=== PATIENT | female | born 1975 | race Caucasian/White ===

== ENCOUNTER 2016-11-15 16:56 | Emergency (ER) | payer OTHER ==
[~2016-11-15] VITALS: Ht 162.6 cm; Wt 80.8 kg
[2016-11-15 16:58] VITALS: TEMP 37; Ht 162.6 cm; Wt 80.8 kg
[2016-11-15] MEDS ORDERED: ONDANSETRON INJ 2 MG/ML 2 ML VIAL IV STA (18:20)
[2016-11-15] MEDS ORDERED: MoRPHine SULFATE 10 MG/ML CARP/VIAL IV STA (18:20)
[2016-11-15] MEDS ORDERED: SODIUM CHLORIDE 0.9% 1000ML 1,000 ML IV ONE (18:30)
[2016-11-15] MEDS ORDERED: OPTIRAY 320 IV PRN (18:30)
[2016-11-15 18:37] LABS: URINE APPEARANCE CLEAR (CLEAR); URINE BILIRUBIN NEG (NEG); URINE COLOR YELLOW; URINE NITRITE NEG (NEG); URINE SPECIFIC GRAVITY 1.005 (1.000-1.030); UROBILINOGEN NEG (NEG); ZZUR CULT IF INDIC CLEAN CATCH NO
[2016-11-15 18:39] LABS: BASO % 0.3 %; BASO ABS # 0.02 K/uL (0-0.2); COMPLETE YES; EOS % 2.1 %; IG% 0.1 %; LYMPH % 35.3 %; LYMPH ABS # 2.49 K/uL (1.2-3.4); MEAN CELL VOLUME 82.6 fL (80-100); MEAN CORPUSCULAR HEMOGLOBIN 27.2 pg (25-34); MEAN CORPUSCULAR HGB CONC 32.9 g/dl (32-36); MEAN PLATELET VOLUME 9.6 fL (7.4-10.4); MONO % 6.4 %; NEUT % 55.8 %; PLATELET COUNT 238 K/uL (130-400); WHITE BLOOD COUNT 7.05 K/uL (4.8-10.8)
[2016-11-15 18:42] LABS: MANUAL MICROSCOPIC REQUIRED? NO; REVIEW REQ? NO
[2016-11-15] MEDS ORDERED: GABA-113 PO (18:42)
[2016-11-15] MEDS ORDERED: BUPRTAB51 PO (18:42)
[2016-11-15] MEDS ORDERED: LINA1CAP PO (18:42)
[2016-11-15] MEDS ORDERED: SYN112 PO (18:42)
[2016-11-15] MEDS ORDERED: ATV/1 PO (18:42)
[2016-11-15] MEDS ORDERED: ESTR1TAB2 PO (18:42)
[2016-11-15 18:56] LABS: BUN/CREATININE RATIO 8.3 (10-20); CREATININE 1.1 mg/dl (0.60-1.20); POTASSIUM 3.6 mmol/L (3.5-5.1)
[2016-11-15 18:59] LABS: ALB/GLOB RATIO 1.1 (0.9-2)
--- NOTE | 2016-11-15 20:21 | DIAGNOSTIC IMAGING REPORT ---
BILIARY ULTRASOUND CLINICAL HISTORY: RUQ abd pain COMPARISON STUDY: No previous studies for comparison. FINDINGS: The pancreas was not visualized. No focal hepatic masses are visualized. There is no ductal dilatation. The common bile duct measures 3 mm. No gallstones are visualized. There is no gallbladder wall thickening. There is no pericholecystic fluid. Equivocal gallbladder sludge is likely artifactual. There is no right-sided hydronephrosis. IMPRESSION: Nondiagnostic evaluation of the pancreas. Otherwise normal biliary ultrasound. Electronically signed by: Kenneth Briceño M.D. 11/15/2016 8:19 PM Dictated Date/Time: 11/15/2016 8:18 PM
--- NOTE | 2016-11-15 21:10 | DIAGNOSTIC IMAGING REPORT ---
CT ABD/PELVIS IV AND ORAL CONT CLINICAL HISTORY: Right side Upper and Lower abd pain COMPARISON STUDY: None. TECHNIQUE: Following the IV administration of 119 mL of Optiray-320, CT scan of the abdomen and pelvis was performed from the lung bases to the proximal femurs. Images are reviewed in the axial, sagittal, and coronal planes. IV contrast was administered without complication. CT DOSE: 595.63 mGy.cm FINDINGS: Lower chest: There are minor basilar atelectatic changes. Liver: The contrast-enhanced liver is normal in size, contour, and attenuation. There is no intrahepatic biliary ductal dilatation. The hepatic veins and portal veins are patent. Gallbladder: Unremarkable. Spleen: Normal in size and attenuation. Pancreas: Unremarkable. Adrenal glands: Unremarkable. Kidneys: There is symmetric renal cortical enhancement. The kidneys are normal in size without hydronephrosis. Bowel: There are no transition zones indicate bowel obstruction. The appendix appears normal. There is no acute diverticulitis. Peritoneum: There is no intraperitoneal free air or abdominal ascites. Vasculature: The abdominal aorta is normal in course and caliber. Adenopathy: None. Pelvic viscera: The bladder, and pelvic viscera are unremarkable. Skeletal structures: No destructive osseous lesions are seen. There is a generator pack within the subcutaneous tissues the right lateral abdominal wall. The electrode extends cephalad. IMPRESSION: No acute intra-abdominal or pelvic findings. No evidence of bowel obstruction. No evidence of free air. Normal appendix. No acute inflammatory changes Electronically signed by: Kenneth Briceño M.D. 11/15/2016 9:08 PM Dictated Date/Time: 11/15/2016 9:04 PM
[2016-11-15] MEDS ORDERED: ONDANSETRON HOME PACK 4MG OD TAB PO ONE (21:30)
[2016-11-15 21:46] VITALS: BP 120/88; PULSE 70; O2SAT 97
--- NOTE | 2016-11-15 21:54 | EMERGENCY ROOM VISIT NOTE ---
ED Visit Note First contact with patient: 18:05 I have personally seen and evaluated the patient with the PA. I agree with the diagnosis and management decisions and have been personally involved in the case. Please see Will Moreira PA-C's notes for further details of the history, physical and visit.
--- NOTE | 2016-11-16 18:20 | EMERGENCY ROOM VISIT NOTE ---
History First contact with patient: 18:05 Chief Complaint: ABDOMINAL PAIN Stated Complaint: RT ABDOMINAL PAIN Nursing Triage Summary: Pt c/o abd RLQ pain since yesterday morning Went to local ED yesterday and "I have a contracted gal bladder but it's not getting any better" History of Present Illness The patient is a 41 year old female who presents to the Emergency Room with complaints of right-sided abdominal pain for the past 24 hours. The patient states that she went to [place] emergency department yesterday where she had blood work and CT scan that showed a contracted gallbladder. The patient was discharged home and followed up with her primary care physician this morning. The patient has persistent pain, contacted her PCP, who referred her back to the ER. The patient has not had fever or chills. No nausea or vomiting. She has not had relief with [id number] pain medication. She rates her discomfort a 10/10, and has not had similar symptoms in the past. She does have a previous history of total hysterectomy and oophorectomy. Review of Systems More than 10 systems were reviewed and otherwise negative with the exception of history of present illness. Past Medical/Surgical History History of anxiety and hypothyroid Family History No pertinent family history Social History Smoking Status: Never Smoker Housing Status: lives with family Current/Historical Medications Scheduled Bupropion (Wellbutrin-Xl), 300 MG PO DAILY Estradiol (Estrace), 1 MG PO QAM Gabapentin (Neurontin), 300 MG PO QID Levothyroxine Sodium (Synthroid), 112 MCG PO QAM Linaclotide (Linzess), 145 MCG PO QAM Lorazepam (Ativan), 1 MG PO BID Allergies Coded Allergies: Sertraline (Verified Allergy, Unknown, rash, 11/15/16) Physical Exam Vital Signs Date Time Temp Pulse Resp B/P Pulse Ox O2 Delivery O2 Flow Rate FiO2 11/15/16 21:46 70 20 120/88 97 11/15/16 21:08 74 20 125/83 99 Room Air 11/15/16 19:20 79 20 128/70 100 Room Air 11/15/16 16:58 37.0 79 18 163/94 98 Room Air Pain Rating (0-10): 2.0 Physical Exam VITALS: Vitals are noted on the nurse's note and reviewed by myself. Vital signs stable. GENERAL: Well-developed, well-nourished, white female who looks quite uncomfortable on presentation. She is holding the right side of her abdomen with both of her hands. HEAD: Normocephalic atraumatic. HEART: Regular rate and rhythm without murmurs gallops or rubs. LUNGS: Clear to auscultation bilaterally without wheezes, rales or rhonchi. No retractions or accessory muscle use. ABDOMEN: Positive normal bowel sounds x 4. Soft with positive right upper and right lower quadrant tenderness on palpation. No rebound tenderness. The patient does guard in the right side of her abdomen. No CVA tenderness. Negative obturator and psoas. MUSCULOSKELETAL: No muscle atrophy, erythema, or edema noted. Full range of motion without joint tenderness in all extremities. Medical Decision & Procedures ER Provider Diagnostic Interpretation: BILIARY ULTRASOUND CLINICAL HISTORY: RUQ abd pain COMPARISON STUDY: No previous studies for comparison. FINDINGS: The pancreas was not visualized. No focal hepatic masses are visualized. There is no ductal dilatation. The common bile duct measures 3 mm. No gallstones are visualized. There is no gallbladder wall thickening. There is no pericholecystic fluid. Equivocal gallbladder sludge is likely artifactual. There is no right-sided hydronephrosis. IMPRESSION: Nondiagnostic evaluation of the pancreas. Otherwise normal biliary ultrasound CT ABD/PELVIS IV AND ORAL CONT CLINICAL HISTORY: Right side Upper and Lower abd pain COMPARISON STUDY: None. TECHNIQUE: Following the IV administration of 119 mL of Optiray-320, CT scan of the abdomen and pelvis was performed from the lung bases to the proximal femurs. Images are reviewed in the axial, sagittal, and coronal planes. IV contrast was administered without complication. CT DOSE: 595.63 mGy.cm FINDINGS: Lower chest: There are minor basilar atelectatic changes. Liver: The contrast-enhanced liver is normal in size, contour, and attenuation. There is no intrahepatic biliary ductal dilatation. The hepatic veins and portal veins are patent. Gallbladder: Unremarkable. Spleen: Normal in size and attenuation. Pancreas: Unremarkable. Adrenal glands: Unremarkable. Kidneys: There is symmetric renal cortical enhancement. The kidneys are normal in size without hydronephrosis. Bowel: There are no transition zones indicate bowel obstruction. The appendix appears normal. There is no acute diverticulitis. Peritoneum: There is no intraperitoneal free air or abdominal ascites. Vasculature: The abdominal aorta is normal in course and caliber. Adenopathy: None. Pelvic viscera: The bladder, and pelvic viscera are unremarkable. Skeletal structures: No destructive osseous lesions are seen. There is a generator pack within the subcutaneous tissues the right lateral abdominal wall. The electrode extends cephalad. IMPRESSION: No acute intra-abdominal or pelvic findings. No evidence of bowel obstruction. No evidence of free air. Normal appendix. No acute inflammatory changes Laboratory Results 11/15/16 18:25 Red Blood Count 4.60, Mean Corpuscular Volume 82.6, Mean Corpuscular Hemoglobin 27.2, Mean Corpuscular Hemoglobin Concent 32.9, Mean Platelet Volume 9.6, Neutrophils (%) (Auto) 55.8, Lymphocytes (%) (Auto) 35.3, Monocytes (%) (Auto) 6.4, Eosinophils (%) (Auto) 2.1, Basophils (%) (Auto) 0.3, Neutrophils # (Auto) 3.93, Lymphocytes # (Auto) 2.49, Monocytes # (Auto) 0.45, Eosinophils # (Auto) 0.15, Basophils # (Auto) 0.02 11/15/16 18:25 Test 11/15/16 18:17 11/15/16 18:25 Urine Color YELLOW Urine Appearance CLEAR (CLEAR) Urine pH 7.0 (4.5-7.5) Urine Specific [place] 1.005 (1.000-1.030) Urine Protein NEG (NEG) Urine Glucose (UA) NEG (NEG) Urine Ketones NEG (NEG) Urine Occult Blood NEG (NEG) Urine Nitrite NEG (NEG) Urine Bilirubin NEG (NEG) Urine Urobilinogen NEG (NEG) Urine Leukocyte Esterase NEG (NEG) White Blood Count 7.05 K/uL (4.8-10.8) Red Blood Count 4.60 M/uL (4.2-5.4) Hemoglobin 12.5 g/dL (12.0-16.0) Hematocrit 38.0 % (37-47) Mean Corpuscular Volume 82.6 fL (80-100) Mean Corpuscular Hemoglobin 27.2 pg (25-34) Mean Corpuscular Hemoglobin Concent 32.9 g/dl (32-36) Platelet Count 238 K/uL (130-400) Mean Platelet Volume 9.6 fL (7.4-10.4) Neutrophils (%) (Auto) 55.8 % Lymphocytes (%) (Auto) 35.3 % Monocytes (%) (Auto) 6.4 % Eosinophils (%) (Auto) 2.1 % Basophils (%) (Auto) 0.3 % Neutrophils # (Auto) 3.93 K/uL (1.4-6.5) Lymphocytes # (Auto) 2.49 K/uL (1.2-3.4) Monocytes # (Auto) 0.45 K/uL (0.11-0.59) Eosinophils # (Auto) 0.15 K/uL (0-0.5) Basophils # (Auto) 0.02 K/uL (0-0.2) RDW Standard Deviation 42.4 fL (36.4-46.3) RDW Coefficient of Variation 14.0 % (11.5-14.5) Immature Granulocyte % (Auto) 0.1 % Immature Granulocyte # (Auto) 0.01 K/uL (0.00-0.02) Anion Gap 7.0 mmol/L (3-11) Est Creatinine Clear Calc Drug Dose 69.9 ml/min Estimated GFR () 72.7 Estimated GFR (Non- 62.8 BUN/Creatinine Ratio 8.3 (10-20) Calcium Level 9.0 mg/dl (8.5-10.1) Total Bilirubin 0.3 mg/dl (0.2-1) Aspartate Amino Transf (AST/SGOT) 14 U/L (15-37) Alanine Aminotransferase (ALT/SGPT) 24 U/L (12-78) Alkaline Phosphatase 68 U/L (45-117) Total Protein 7.9 gm/dl (6.4-8.2) Albumin 4.1 gm/dl (3.4-5.0) Globulin 3.8 gm/dl (2.5-4.0) Albumin/Globulin Ratio 1.1 (0.9-2) Lipase 156 U/L (73-393) Medications Administered Medications (Trade) Dose Ordered Sig/Jayesh Route Start Time Stop Time Status Last Admin Dose Admin Sodium Chloride (Nss 1000ml) 1,000 ml @ 999 mls/hr Q1H1M ONCE IV 11/15/16 18:30 11/15/16 19:30 DC 11/15/16 18:51 999 MLS/HR Morphine Sulfate (MoRPHine SULFATE INJ) 8 mg NOW STAT IV 11/15/16 18:20 11/15/16 18:25 DC 11/15/16 18:51 8 MG Ondansetron HCl (Zofran Inj) 4 mg NOW STAT IV 11/15/16 18:20 11/15/16 18:25 DC 11/15/16 18:51 4 MG Ondansetron HCl (ZOFRAN ODT 4MG Home Pack) 1 homepack UD ONCE PO 11/15/16 21:30 11/15/16 21:31 DC 11/15/16 21:40 1 HOMEPACK ED Course Physical exam and history were performed. Nursing notes and EMR were reviewed. Patient appears to have right-sided abdominal pain that is tender on palpation. The patient was seen yesterday [place] emergency department, and we were able to review the records. She did have a noncontrast CT scan and essentially normal blood work. She was discharged to follow with her primary care physician , which evidently she did this morning. The patient states her pain continues and she rates it a 10/10. She and I had a lengthy discussion regarding options of care, and she does request both an ultrasound and a CT scan. I explained the risks of multiple CT scans and a short interval, but she would like to proceed. I did order a right upper quadrant ultrasound and a contrast CT. The patient was hydrated and medicated as above. The patient's blood work is as above and was reviewed. She does not have a significantly elevated white blood cell count, anemia, bandemia, or gross electrolyte imbalance. Lipase and transaminases are nondiagnostic. Ultrasound does not show evidence of biliary etiology for her discomfort. CT scan is without signs of acute surgical abdomen. Overall the patient had significant improvement of her discomfort after a small amount of pain medication here. I did review the [place] drug monitoring program, the patient does not regularly receive narcotics I do not have objective findings to explain her discomfort, and feel that conservative measures are most appropriate. The patient case was discussed with Dr. Garcia, who also an apparently evaluated the patient. The patient will need to follow with her primary care physician and possibly GI for her symptoms. There is a possibility of some of her discomfort could be coming from a stimulator that she had placed in her back, however this is not in the location of her discomfort. The patient was otherwise invited back to the ER with any new, worsening, or concerning symptoms. The chart was completed utilizing [employer] Voice Recognition Software. Grammatical errors, random word insertions, pronoun errors, and incomplete sentences are an occasional consequence of this system due to software limitations, ambient noise, and hardware issues. Any formal questions or concerns about the content, text, or information contained within the body of this dictation should be directly addressed to the provider for clarification. . Medical Decision Differential diagnosis: Etiologies such as appendicitis, diverticulitis, PUD, biliary pathology, UTI, pancreatitis, obstruction, mesenteric ischemia, aortic pathology, infections, inflammatory bowel disease, renal colic, as well as others were entertained. Impression Primary Impression: Right sided abdominal pain Departure Information Dispostion Home / Self-Care Condition GOOD Referrals Tyrese Smith MD Forms Call Back Authorization, HOME CARE DOCUMENTATION FORM, IMPORTANT VISIT INFORMATION Patient Instructions My [facility] Additional Instructions You were seen and evaluated today on an emergency basis only. This is not a substitute for, or an effort to provide, complete comprehensive medical care. It is not possible to recognize and treat all injuries or illnesses in a single emergency department visit. For this reason it is recommended that you followup with Gastroenterology, Dr. Smith's office, by telephone in the morning to arrange a follow-up appointment. Let them know you're seen in the ER to help establish care. For baseline pain relief you may alternate ibuprofen and acetaminophen every 4 hours for pain control. Take 600 mg ibuprofen (Advil) and then 4 hours later take 1000 mg acetaminophen (Tylenol). Do not take more than 3000 mg acetaminophen in a single day. Zofran (homepack) 1 tablet every 6 hrs as needed for nausea. You are welcome to return to the emergency department anytime with new, worsening, or concerning symptoms.
== END 2016-11-15 21:48 | disposition home or self-care (01) ==
LOC: C.EDB 16:57
DX: R10.31 Right lower quadrant pain (principal); F41.9 Anxiety disorder, unspecified; E03.9 Hypothyroidism, unspecified; Z79.899 Other long term (current) drug therapy

== ENCOUNTER → 2016-11-26 | Outpatient (CLI) | payer OTHER ==
[~2016-11-26] MED LIST: ATV/1 PO; BUPRTAB51 PO; ESTR1TAB2 PO; GABA-113 PO; LINA1CAP PO; SINCALIDE INJ 0 MCG in SODIUM CHLORIDE 0.9% 100ML IV ONE; SYN112 PO
--- NOTE | 2016-11-26 10:57 | DIAGNOSTIC IMAGING REPORT ---
NUCLEAR MEDICINE HEPATOBILIARY SCAN WITH EJECTION FRACTION HISTORY: RIGHT UPPER QUAD ABDOMINAL PAIN COMPARISON: Abdominal ultrasound 11/15/2016. TECHNIQUE: Immediately following the intravenous administration of 5.5 mCi Tc-99m Choletec, dynamic anterior abdominal imaging pre/post 1.6 mcg of Kinevac was performed. FINDINGS: Uniform hepatic tracer accumulation is shown. Prompt intrahepatic biliary excretion is seen. The gallbladder, common bile duct, and small bowel are all visualized by 20 minutes. This appearance represents the normal sequence of biliary excretion. The gall bladder ejection fraction following administration of Kinevac was 31% (normal >35%). IMPRESSION: 1. No evidence for cystic duct obstruction. 2. Gallbladder ejection fraction calculated to be 31 %. This is considered to be abnormally low (normal is greater than 35%). Electronically signed by: Norman Santos M.D. 11/26/2016 10:56 AM Dictated Date/Time: 11/26/2016 10:54 AM
== END | disposition home or self-care (01) ==
LOC: C.NUCL 07:24
PROVIDERS: ATTEND Nurse Practitioner Family
DX: R10.11 Right upper quadrant pain (principal)

== ENCOUNTER 2017-09-19 20:48 | Emergency (ER) | payer OTHER ==
[~2017-09-19] VITALS: Ht 162.6 cm; Wt 85.9 kg
[~2017-09-19 20:48] MED LIST changes: -ATV/1 PO; -BUPRTAB51 PO; -ESTR1TAB2 PO; -GABA-113 PO; -SINCALIDE INJ 0 MCG in SODIUM CHLORIDE 0.9% 100ML IV ONE
[2017-09-19 21:00] VITALS: TEMP 36.9; Ht 162.6 cm; Wt 85.9 kg
--- NOTE | 2017-09-19 21:28 | EMERGENCY ROOM VISIT NOTE ---
History First contact with patient: 21:09 Chief Complaint: NAUSEA Stated Complaint: NAUSEA WITH R SIDED PAIN History of Present Illness The patient is a 42 year old female with hx of endometriosis (s/p hysterectomy and bilateral oophorectomy 20 years ago), hypothyroidism, dep/anxiety, and R hand reflex sympathetic dystrophy who presents to the Emergency Room with complaints of R sided abdominal pain x 2 weeks. Associated with nausea. Denies f /c, cp, sob, vomiting, d/c, dysuria, hematuria, vaginal discharge/irritation/ bleeding. Reports went to [facility] with RUQ abdominal pain 2 weeks ago where she had an abdominal CT concerning for stool/adhesions/appendicitis? but since then pain has been worsening and now also in RLQ/suprapubic region. Had cholecystectomy 6 months ago. Taken 3 of aleve without significant relief. Sexually active with live-in boyfriend. Review of Systems see below Constitutional: No fever, No chills Respiratory: No shortness of breath Cardiovascular: No chest pain Abdomen: + pain, + nausea, No vomiting, No diarrhea, No constipation Genitourinary - Female: No dysuria, No hematuria, No vaginal bleeding, No vaginal discharge, No vaginal itching Past Medical/Surgical History Medical Problems: (1) Anxiety (2) Depression (3) Hx of endometritis (4) Hypothyroidism Surgical Problems: (1) H/O hysterectomy with oophorectomy (2) Hx of cholecystectomy Social History Smoking Status: Never Smoker Housing Status: lives with family Current/Historical Medications Scheduled Bupropion (Wellbutrin-Xl), 300 MG PO DAILY Estradiol (Estrace), 1 MG PO QAM Gabapentin (Neurontin), 300 MG PO QID Levothyroxine Sodium (Synthroid), 112 MCG PO QAM Lorazepam (Ativan), 1 MG PO BID Scheduled PRN Linaclotide (Linzess), 145 MCG PO QAM PRN for IBS Naproxen (Aleve), 660 MG PO DAILY PRN for Pain Physical Exam Vital Signs Date Time Temp Pulse Resp B/P (MAP) Pulse Ox O2 Delivery O2 Flow Rate FiO2 09/19/17 21:00 36.9 76 18 143/93 95 Room Air Physical Exam see below General Appearance: + mild distress Eyes: normal inspection Neck: supple Respiratory/Chest: lungs clear, normal breath sounds Cardiovascular: regular rate, rhythm, no edema, no murmur Abdomen / GI: normal bowel sounds, soft, + tenderness (RLQ and suprapubic TTP), + pertinent finding (no rebound tenderness; negative psoas sign) Back: no CVA tenderness Extremities: normal inspection, normal capillary refill, no pedal edema Neurologic/Psych: alert, oriented x 3 Medical Decision & Procedures Laboratory Results Test 09/19/17 21:35 Medical Decision 42 yoF with hx of endometriosis (s/p hysterectomy and bilateral oophorectomy 20 years ago), hypothyroidism, dep/anxiety, and R hand reflex sympathetic dystrophy presents with complaints worsening RUQ abdominal pain x 2 weeks now also radiating to RLQ/suprapubic region concerning for appendicitis vs. bowel obstruction from adhesions given hx of multiple abdominal surgeries vs. UTI vs. constipation. Unlikely to be cholecystitis since she had cholecystectomy 6 months ago but can still have choledocholithiasis. Departure Information Referrals RAJWINDER MOREL (PCP) Patient Instructions My [facility]
[2017-09-19] MEDS ORDERED: SODIUM CHLORIDE 0.9% 1000ML 1,000 ML IV STA (21:35)
[2017-09-19] MEDS ORDERED: ONDANSETRON INJ 2 MG/ML 2 ML VIAL IV STA (21:35)
[2017-09-19] MEDS ORDERED: KETOROLAC TROMETHAMINE 30 MG/ML VIAL IV STA (21:35)
[2017-09-19] MEDS ORDERED: OPTIRAY 320 IV PRN (21:45)
--- NOTE | 2017-09-19 22:00 | EMERGENCY ROOM VISIT NOTE ---
History Report prepared by Artie: Tiffany Arauz Under the Supervision of: Dr. Nestor Yousif D.O. First contact with patient: 21:33 Chief Complaint: NAUSEA Stated Complaint: NAUSEA WITH R SIDED PAIN History of Present Illness The patient is a 42 year old female who presents to the Emergency Room with complaints of worsening nausea starting two weeks ago. The patient complains of abdominal pain in the right upper quadrant. She states that it came along with nausea. She reports that she went to [facility] and had a CT complete. She reports that they said it could be a stool burden, adhesions, or appendicitis. She states that they did not do anything following the finding. She reports that it has now radiated lower into her abdomen. She states that the pain is sharp. She states that she took Aleve with no relief. She denies urinary symptoms and vaginal discharge. Source of History: patient Onset: two weeks ago Position: other (global) Quality: sharp Timing: worsening Associated Symptoms: + nausea, No urinary symptoms Note: The patient denies vaginal discharge. Review of Systems See HPI for pertinent positives & negatives. A total of 10 systems reviewed and were otherwise negative. Past Medical & Surgical Medical Problems: (1) Anxiety (2) Depression (3) Hx of endometritis (4) Hypothyroidism Surgical Problems: (1) H/O hysterectomy with oophorectomy (2) Hx of cholecystectomy Family History Patient reports no known family medical history. Social History Smoking Status: Never Smoker Marital Status: in relationship Housing Status: lives with significant other Current/Historical Medications Scheduled Bupropion (Wellbutrin-Xl), 300 MG PO DAILY Estradiol (Estrace), 1 MG PO QAM Gabapentin (Neurontin), 300 MG PO QID Levothyroxine Sodium (Synthroid), 112 MCG PO QAM Lorazepam (Ativan), 1 MG PO BID Scheduled PRN Linaclotide (Linzess), 145 MCG PO QAM PRN for IBS Naproxen (Aleve), 660 MG PO DAILY PRN for Pain Allergies Coded Allergies: Sertraline (Verified Allergy, Unknown, rash, 09/19/17) Physical Exam Vital Signs Date Time Temp Pulse Resp B/P (MAP) Pulse Ox O2 Delivery O2 Flow Rate FiO2 09/19/17 22:55 90 19 125/96 96 Room Air 09/19/17 21:00 36.9 76 18 143/93 95 Room Air Physical Exam CONSTITUTIONAL/VITAL SIGNS: Reviewed / noted above. GENERAL: Non-toxic in appearance. INTEGUMENTARY: Warm, dry, and [place]. HEAD: Normocephalic. EYES: without scleral icterus or trauma. ENT/OROPHARYNX: clear and moist. LYMPHADENOPATHY/NECK: Is supple without lymphadenopathy or meningismus. RESPIRATORY: Lungs clear and equal. CARDIOVASCULAR: Regular rate and rhythm. GI/ABDOMEN: Soft. Tenderness to right lower quadrant. No organomegaly or pulsatile mass. No rebound or guarding. Normal bowel sounds. EXTREMITIES: Warm and well perfused. BACK: No CVA tenderness. NEUROLOGICAL: Intact without focal deficits. PSYCHIATRIC: normal affect. MUSCULOSKELETAL: Normally developed with good muscle tone. Medical Decision & Procedures ER Provider Diagnostic Interpretation: Radiology results as stated below per my review and radiologist interpretation: CT ABDOMEN & PELVIS With Contrast: Comparison 11/15/2016. Abdominal solid organs appear within limits. Status post cholecystectomy. No bowel dilation, free air or free fluid. [place] artifact from stimulator device. Normal caliber appendix without secondary signs. No free fluid. Radiologist: Chance Chaudhary M.D. Study ready at 23:13 and initial results transmitted at 23:29. Laboratory Results 09/19/17 21:45 Red Blood Count 4.83, Mean Corpuscular Volume 84.1, Mean Corpuscular Hemoglobin 27.7, Mean Corpuscular Hemoglobin Concent 33.0, Mean Platelet Volume 10.3, Neutrophils (%) (Auto) 56.2, Lymphocytes (%) (Auto) 34.4, Monocytes (%) (Auto) 6.2, Eosinophils (%) (Auto) 2.6, Basophils (%) (Auto) 0.5, Neutrophils # (Auto) 4.09, Lymphocytes # (Auto) 2.51, Monocytes # (Auto) 0.45, Eosinophils # (Auto) 0.19, Basophils # (Auto) 0.04 09/19/17 21:45 Test 09/19/17 21:45 09/19/17 22:00 White Blood Count 7.29 K/uL (4.8-10.8) Red Blood Count 4.83 M/uL (4.2-5.4) Hemoglobin 13.4 g/dL (12.0-16.0) Hematocrit 40.6 % (37-47) Mean Corpuscular Volume 84.1 fL (80-100) Mean Corpuscular Hemoglobin 27.7 pg (25-34) Mean Corpuscular Hemoglobin Concent 33.0 g/dl (32-36) Platelet Count 240 K/uL (130-400) Mean Platelet Volume 10.3 fL (7.4-10.4) Neutrophils (%) (Auto) 56.2 % Lymphocytes (%) (Auto) 34.4 % Monocytes (%) (Auto) 6.2 % Eosinophils (%) (Auto) 2.6 % Basophils (%) (Auto) 0.5 % Neutrophils # (Auto) 4.09 K/uL (1.4-6.5) Lymphocytes # (Auto) 2.51 K/uL (1.2-3.4) Monocytes # (Auto) 0.45 K/uL (0.11-0.59) Eosinophils # (Auto) 0.19 K/uL (0-0.5) Basophils # (Auto) 0.04 K/uL (0-0.2) RDW Standard Deviation 41.4 fL (36.4-46.3) RDW Coefficient of Variation 13.6 % (11.5-14.5) Immature Granulocyte % (Auto) 0.1 % Immature Granulocyte # (Auto) 0.01 K/uL (0.00-0.02) Anion Gap 6.0 mmol/L (3-11) Est Creatinine Clear Calc Drug Dose 66.6 ml/min Estimated GFR () 66.3 Estimated GFR (Non- 57.2 BUN/Creatinine Ratio 14.5 (10-20) Calcium Level 8.6 mg/dl (8.5-10.1) Total Bilirubin 0.3 mg/dl (0.2-1) Direct Bilirubin mg/dl (0-0.2) Aspartate Amino Transf (AST/SGOT) 20 U/L (15-37) Alanine Aminotransferase (ALT/SGPT) 21 U/L (12-78) Alkaline Phosphatase 64 U/L (45-117) Total Protein 7.6 gm/dl (6.4-8.2) Albumin 4.2 gm/dl (3.4-5.0) Lipase 221 U/L (73-393) Urine Color YELLOW Urine Appearance CLEAR (CLEAR) Urine pH 5.5 (4.5-7.5) Urine Specific [place] 1.019 (1.000-1.030) Urine Protein NEG (NEG) Urine Glucose (UA) NEG (NEG) Urine Ketones NEG (NEG) Urine Occult Blood NEG (NEG) Urine Nitrite NEG (NEG) Urine Bilirubin NEG (NEG) Urine Urobilinogen NEG (NEG) Urine Leukocyte Esterase NEG (NEG) Urine WBC (Auto) 1-5 /hpf (0-5) Urine RBC (Auto) 0-4 /hpf (0-4) Urine Hyaline Casts (Auto) 0 /lpf (0-5) Urine Epithelial Cells (Auto) 5-10 /lpf (0-5) Urine Bacteria (Auto) NEG (NEG) Laboratory results as stated above per my review. Medications Administered Medications (Trade) Dose Ordered Sig/Jayesh Route Start Time Stop Time Status Last Admin Dose Admin Sodium Chloride 1,000 ml @ 999 mls/hr Q1H1M STAT IV 09/19/17 21:35 09/19/17 22:35 DC 09/19/17 21:59 999 MLS/HR Ondansetron HCl (Zofran Inj) 4 mg NOW STAT IV 09/19/17 21:35 09/19/17 21:37 DC 09/19/17 21:59 4 MG Ketorolac Tromethamine (Toradol Inj) 30 mg NOW STAT IV 09/19/17 21:35 09/19/17 21:37 DC 09/19/17 21:59 30 MG ED Course 2135: Ordered Toradol Inj 30 mg IV, Zofran Inj 4 mg IV, NSS 1000 ml @ 999 mls/ hr IV. 2150: Previous medical records were reviewed. The patient was evaluated in room B9. A complete history and physical examination was performed. 2338: On reevaluation, the patient is resting comfortably. I discussed the results and findings with the patient. She verbalized agreement of the treatment plan. The patient was discharged home. Medical Decision Differential considered: pancreatitis, hepatitis, or acute cholecystitis, AAA, UTI, pyelonephritis, kidney stones, appendicitis, diverticulitis, shingles, bowel obstruction mesenteric ischemia, intussusception,hernia. This is a 42-year-old female who presents to the ED with a chief complaint of nausea as well as right-sided lower abdominal pain. Patient reports history of hysterectomy/oophorectomy and cholecystectomy. The patient states that her symptoms started 2 weeks ago. She denies any urinary symptoms. Her exam reveals tenderness in the right lower quadrant. CBC and complete metabolic panel were normal. Urine did not show infection. Lipase was negative. The patient was treated with IV Toradol, IV fluids and IV Zofran. CT scan did not show any acute process. The patient was told the results and felt to be stable for discharge. Medication Reconcilliation Current Medication List: was personally reviewed by me Blood Pressure Screening Patient's blood pressure: Normal blood pressure Blood pressure disposition: Did not require urgent referral Impression Primary Impression: Right lower quadrant abdominal pain Scribe Attestation The scribe's documentation has been prepared under my direction and personally reviewed by me in its entirety. I confirm that the note above accurately reflects all work, treatment, procedures, and medical decision making performed by me. Departure Information Dispostion Home / Self-Care Referrals RAJWINDER MOREL (PCP) Forms HOME CARE DOCUMENTATION FORM, IMPORTANT VISIT INFORMATION Patient Instructions Abdominal Pain, My [facility] Additional Instructions Follow-up with your doctor for further care and evaluation in 1-2 days. Return to the emergency department for worsening or new symptoms or any concerns. You have been examined and treated today on an emergency basis only. This is not a substitute for, or an effort to provide, complete comprehensive medical care. It is impossible to recognize and treat all injuries or illnesses in a single emergency department visit. It is therefore important that you follow up closely with your doctor. Call as soon as possible for an appointment.
[2017-09-19 22:01] LABS: BASO % 0.5 %; BASO ABS # 0.04 K/uL (0-0.2); EOS % 2.6 %; EOS ABS # 0.19 K/uL (0-0.5); HEMATOCRIT 40.6 % (37-47); HEMOGLOBIN 13.4 g/dL (12.0-16.0); IG# 0.01 K/uL (0.00-0.02); LYMPH % 34.4 %; LYMPH ABS # 2.51 K/uL (1.2-3.4); MEAN CELL VOLUME 84.1 fL (80-100); MEAN CORPUSCULAR HEMOGLOBIN 27.7 pg (25-34); MEAN PLATELET VOLUME 10.3 fL (7.4-10.4); MONO % 6.2 %; MONO ABS # 0.45 K/uL (0.11-0.59); NEUT % 56.2 %; NEUT ABS # 4.09 K/uL (1.4-6.5); PLATELET COUNT 240 K/uL (130-400); RED CELL DISTRIBUTION WIDTH CV 13.6 % (11.5-14.5); RED CELL DISTRIBUTION WIDTH SD 41.4 fL (36.4-46.3); WHITE BLOOD COUNT 7.29 K/uL (4.8-10.8)
[2017-09-19 22:45] LABS: ALBUMIN 4.2 gm/dl (3.4-5.0); CALCIUM 8.6 mg/dl (8.5-10.1); CREATININE 1.18 mg/dl (0.60-1.20); TOTAL PROTEIN 7.6 gm/dl (6.4-8.2)
[2017-09-20 00:01] VITALS: BP 124/83; PULSE 69; O2SAT 99
--- NOTE | 2017-09-20 07:13 | DIAGNOSTIC IMAGING REPORT ---
CT SCAN OF THE ABDOMEN AND PELVIS WITH IV CONTRAST CLINICAL HISTORY: Right upper quadrant abdominal pain. COMPARISON STUDY: Abdominal CT dated 11/15/16. TECHNIQUE: Following the IV administration of 90 cc of Optiray 320, CT scan of the abdomen and pelvis is performed from the lung bases to the proximal femora. Images are reviewed in the axial, sagittal, and coronal planes. IV contrast was administered without complication. A dose lowering technique was utilized adhering to the principles of ALARA. CT DOSE: 656.87 mGy.cm FINDINGS: Lung bases: The heart is normal in size and without pericardial effusion. The lung bases are clear noting dependent atelectasis. Liver: The contrast-enhanced liver is normal in size, contour, and attenuation. There is mild central intrahepatic biliary ductal dilatation. The hepatic veins and portal veins are patent. Gallbladder: Surgically absent noting clips in the gallbladder fossa. Spleen: Normal in size and attenuation. Pancreas: Unremarkable. Adrenal glands: Unremarkable. Kidneys: The contrast enhanced kidneys are normal in size. A punctate obstructing calculus is suspected in the distal right ureter, best seen on axial image #389. There is mild associated right-sided hydroureteronephrosis. No hydronephrosis is seen on the left. The kidneys enhance symmetrically. No additional calculi are clearly identified on this contrast-enhanced examination. Abdominal vasculature: The abdominal aorta is normal in course and caliber. Bowel: The small bowel and colon are normal in course and caliber. The appendix is well-visualized and normal. Peritoneum: There is no intraperitoneal free air or abdominal ascites. There is a small fat-containing umbilical hernia. Lymphadenopathy: None. Pelvic viscera: The bladder, uterus, and adnexa are normal as visualized. Skeletal structures: No lytic or blastic lesions are seen. A neurostimulator device is present within the right gluteal soft tissues. The catheter extends posteriorly in the right paraspinous region. IMPRESSION: 1. Suspect a punctate obstructing calculus in the distal right ureter just above the vesicoureteral junction. This causes mild right hydroureteronephrosis. 2. No additional renal calculi are clearly identified on this contrast-enhanced examination. 3. Additional findings as above. Electronically signed by: Carlos Roger M.D. 09/20/2017 7:12 AM Dictated Date/Time: 09/20/2017 7:06 AM
[2018-04-07] MEDS ORDERED: LEVO125T5 PO (15:44)
[2018-04-07] MEDS ORDERED: ESTR1TAB2 PO (18:42)
[2018-04-07] MEDS ORDERED: ATV/1 PO (18:42)
[2018-04-07] MEDS ORDERED: GABA-113 PO (18:42)
[2018-04-07] MEDS ORDERED: BUPRTAB51 PO (18:42)
[2018-04-07] MEDS ORDERED: NAPR1TAB9 PO (21:30)
[2018-04-11] MEDS ORDERED: ULT50X PO (18:09)
[2018-04-11] MEDS ORDERED: ACET-1047 PO (18:09)
[2018-04-11] MEDS ORDERED: CRFUDL PO (18:09)
[2018-04-11] MEDS ORDERED: PANT40TA PO (18:09)
== END 2017-09-19 23:58 | disposition home or self-care (01) ==
LOC: C.EDB 20:49
DX: R10.31 Right lower quadrant pain (principal); F41.9 Anxiety disorder, unspecified; F32.9 Major depressive disorder, single episode, unspecified; E03.9 Hypothyroidism, unspecified